=== PATIENT | male | born 1945 | race American Indian/Alaskan Native ===

== ENCOUNTER 2018-03-20 12:16 | Observation (INO) | payer MEDICARE ==
--- NOTE | 2018-03-20 12:48 | C.PDOC ---
Time Seen by Provider: 03/20/18 12:46 Chief Complaint (Nursing): Syncope Past Medical History Vital Signs: Last Vital Signs Temp 98.5 F 03/20/18 12:35 Pulse 71 03/20/18 12:35 Resp 14 03/20/18 12:35 BP 143/56 L 03/20/18 12:35 Pulse Ox - Medical History PMH: HTN - Social History Hx Alcohol Use: No Hx Substance Use: No - Immunization History Hx Tetanus Toxoid Vaccination: No Hx Influenza Vaccination: Yes Hx Pneumococcal Vaccination: No Disposition - Disposition
[2018-03-20 13:07] LABS: BASO % 0.8 % (0.0-2.0); EOS # 0.2 K/uL (0.0-0.7); EOS % 3.6 % (0.0-4.0); HEMOGLOBIN 12.8 g/dL (12.0-18.0); LYMPH % 23.5 % (20.0-40.0); MEAN CELL VOLUME 93.5 fL (80.0-94.0); MEAN CORPUSCULAR HEMOGLOBIN 32.2 pg (27.0-31.0); MEAN CORPUSCULAR HGB CONC 34.4 g/dL (33.0-37.0); MEAN PLATELET VOLUME 9.5 fL (7.2-11.7); MONO # 0.6 K/uL (0.0-0.8); MONO % 12.8 % (0.0-10.0); NEUT # 2.6 K/uL (1.8-7.0); NEUT % 59.3 % (50.0-75.0); NRBC % 0.1 % (0.0-2.0); RBC 3.97 Mil/uL (4.40-5.90); RED CELL DISTRIBUTION WIDTH 15.2 % (11.5-14.5); WHITE BLOOD COUNT 4.4 K/uL (4.8-10.8)
[2018-03-20 13:15] LABS: INR 1.1; PROTHROMBIN TIME 11.6 SECONDS (9.7-12.2)
[2018-03-20 13:33] LABS: ALB/GLOB RATIO 1.5 (1.0-2.1); ALBUMIN 4.4 g/dL (3.5-5.0); ALT/SGPT 36 U/L (21-72); AST/SGOT 42 U/L (17-59); BLOOD UREA NITROGEN 25 mg/dL (9-20); CALCIUM 9.2 mg/dl (8.6-10.4); GFR AFRICAN-AMERICAN > 60; GFR NON-AFRICAN AMERICAN > 60
[2018-03-20 13:38] LABS: B-TYPE NATRIURETIC PEPTIDE 227 pg/mL (0-900); CK-MB 1.62 ng/mL (0.0-3.38)
--- NOTE | 2018-03-20 13:41 | C.PDOC ---
History Of Present Illness HX PER PT, FAMILY 72-YEAR-OLD MALE, PRESENTS TO THE EMERGENCY DEPARTMENT S/P WITNESSED SYNCOPE @ 1300. PS WALKED TO STORE WO DIFF, WAS SELECTING FOOD CO SUDDEN ONSET DIZZY, "I COULDN'T SEE", TRIED TO WALK TO CHAIR TO SIT DOWN. PER WITNESS, PT NOTED TO APPEAR AWAKE BUT "TOTALLY DAZED", DARK LIPS. PT NOW ASYMPT, IMPROVED FROM PRIOR. DENIES PRIOR HO CAD, SYNCOPAL EVENTS. NO ASSOC PAGE, CP, ABD PAIN, PALPITATIONS. PER FAMILY, PT DRINKS 1 BOTTLE WHISKEY DAILY "BUT ONLY IN EVENING ". PT CURRENTLY SOBER PER FAMILY. PS DOES NOT TAKE METOPROLOL "ONLY OCCASIONALLY " DUE TO UPSET STOMACH BUT OTHERWISE COMPLIANT W OTHER MEDS. EXAM NAD NONTOXIC HEENT ATRAUMA NECK SUPPLE LUNGS CTA B/L NO W/R/R CV RRR ABD NEG EXT NO EDEMA ATRAUM NEURO NO FOCAL DEF AO3 PSYCH CALM COOPERATIVE, NO ACUTE INTOX/WITH SKIN WARM DRY REMAINDER NEG Time Seen by Provider: 03/20/18 12:46 Chief Complaint (Nursing): Syncope History Per: Patient, Family History/Exam Limitations: no limitations Current Symptoms Are (Timing): Better Past Medical History Reviewed: Historical Data, Nursing Documentation, Vital Signs Vital Signs: Last Vital Signs Temp 98.5 F 03/20/18 12:35 Pulse 80 03/20/18 14:07 Resp 16 03/20/18 14:07 BP 150/65 03/20/18 14:07 Pulse Ox 95 03/20/18 14:07 - Medical History PMH: HTN Family History: States: No Known Family Hx - Social History Hx Alcohol Use: No Hx Substance Use: No - Immunization History Hx Tetanus Toxoid Vaccination: No Hx Influenza Vaccination: Yes Hx Pneumococcal Vaccination: No Review Of Systems Constitutional: Negative for: Fever, Chills Cardiovascular: Negative for: Chest Pain, Palpitations Respiratory: Negative for: Cough, Shortness of Breath Gastrointestinal: Negative for: Nausea, Vomiting, Abdominal Pain Musculoskeletal: Negative for: Neck Pain, Back Pain Neurological: Positive for: Dizziness (Syncope). Negative for: Weakness, Numbness, Headache Physical Exam - Physical Exam Appears: Non-toxic, No Acute Distress Skin: Warm, Dry, No Rash Head: Atraumatic, Normacephalic Nose: Normal Oral Mucosa: Moist Lips: Normal Appearing Neck: Normal ROM Chest: Symmetrical Cardiovascular: Rhythm Regular, No Murmur Respiratory: Normal Breath Sounds, No Accessory Muscle Use, No Rales, No Rhonchi , No Wheezing Gastrointestinal/Abdominal: Soft, No Tenderness Back: No CVA Tenderness Extremity: No Pedal Edema, No Deformity, No Swelling Neurological/Psych: Oriented x3, Normal Speech (NO FOCAL DEF), Other (CALM COOPERATIVE, NO ACUTE INTOX/WITH) ED Course And Treatment - Laboratory Results Result Diagrams: 03/20/18 12:59 03/20/18 12:59 Progress - Re-Evaluation Re-evaluation Note: 03/20/18 13:41 PT AND FAMILY ADVISED PT WILL REQUIRE ADMISSION FOR FURTHER EVALUATION AND WORKUP. 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 WILL ADMIT - Data Reviewed Data Reviewed: Lab, Diagnostic imaging, EKG, Old records - Critical Care Citical Care: Excluding Proc Time Critical Care Time: 90 minutes - Continuity of Care Discussed patient case with:: Patient, Family-HIPPA compliant Disposition Counseled Patient/Family Regarding: Studies Performed, Diagnosis - Disposition Disposition: HOSPITALIZED Disposition Time: 15:24 Condition: STABLE - POA Present On Arrival: None - Clinical Impression Clinical Impression: Syncope, Alcohol dependence - Scribe Statement The provider has reviewed the documentation as recorded by the Scribe (Julianne Kelsey) All medical record entries made by the Scribe were at my direction and personally dictated by me. I have reviewed the chart and agree that the record accurately reflects my personal performance of the history, physical exam, medical decision making, and the department course for this patient. I have also personally directed, reviewed, and agree with the discharge instructions and disposition. Decision To Admit - Pt Status Changed To: Hospital Disposition Of: Observation - . Bed Request Type: Telemetry Admitting Physician: Sola Cat Patient Diagnosis: Syncope, Alcohol dependence
--- NOTE | 2018-03-20 13:48 | RAD ---
PROCEDURE: CHEST RADIOGRAPH, 1 VIEW HISTORY: syncope COMPARISON: None available. FINDINGS: LUNGS: Clear. PLEURA: No pneumothorax or pleural fluid seen. CARDIOVASCULAR: Normal. OSSEOUS STRUCTURES: Degenerative changes. VISUALIZED UPPER ABDOMEN: Normal. OTHER FINDINGS: None. IMPRESSION: No active disease.
[2018-03-20 14:33] LABS: URINE BILIRUBIN NEGATIVE (NEGATIVE); URINE BLOOD NEGATIVE (NEGATIVE); URINE CLARITY Hazy (Clear); URINE COLOR Yellow (YELLOW); URINE GLUCOSE (UA) NORMAL (Normal); URINE HYALINE CAST 0-2 /lpf (0-2); URINE LEUKOCYTE ESTERASE NEG Leu/uL (Negative); URINE PROTEIN NEGATIVE (NEGATIVE)
--- NOTE | 2018-03-20 15:09 | CT ---
PROCEDURE: CT HEAD WITHOUT CONTRAST. HISTORY: syncope COMPARISON: None available. TECHNIQUE: Axial computed tomography images were obtained through the head/brain without intravenous contrast. Radiation dose: Total exam DLP = 864.1 mGy-cm. This CT exam was performed using one or more of the following dose reduction techniques: Automated exposure control, adjustment of the mA and/or kV according to patient size, and/or use of iterative reconstruction technique. FINDINGS: HEMORRHAGE: No intracranial hemorrhage. BRAIN: No mass effect or edema. Mild atrophy. Mild chronic microvascular ischemic changes. VENTRICLES: Unremarkable. No hydrocephalus. CALVARIUM: Unremarkable. PARANASAL SINUSES: Trace pansinus mucosal thickening. MASTOID AIR CELLS: Unremarkable as visualized. No inflammatory changes. OTHER FINDINGS: None. IMPRESSION: No acute intracranial pathology.
--- NOTE | 2018-03-20 22:23 | CP.PCM.HP ---
History of Present Illness - History of Present Illness History of Present Illness: COMPREHENSIVE HISTORY & PHYSICAL EXAM Patient is admitted with a history of syncope HPI While going to the store today patient suddenly felt lightheaded and blurry vision and became extremely weak that he had to sit down patient is not sure that he had completely passed out. Patient was also very diaphoretic and sweating there was no chest pain or any seizure activity. Patient was brought to the emergency room routine neuro and cardiac workup was negative. Patient is an alcoholic drinks whiskey every day but claims he drinks only in the evening and as per the family patient does not appear to be done. Alcohol level in the emergency room was negative. Currently patient does not complain of any symptoms PAST HIST. Patient is a history of cardiomyopathy there is no definite history of coronary artery disease. Type II diabetes, hypertension on 3 drugs. PERSONAL HIST: Smoking. N Alcohol. Moderate to heavy for many years Allergy N Travel_- . FAMILY HIST : ROS : Constitutional: Negative for weight change, chills, night sweats, fatigue and usage of assist device. Eyes: Negative for redness, swelling, itching, discharge, vision changes, blurry vision, double vision, glaucoma, cataracts, Ears: Negative for hearing loss, ringing, , tinnitus, vertigo Nose: Negative for rhinorrhea, stuffiness, sniffing, itching, postnasal drip, discoloration, nasal congestion and epistaxis. Throat: Negative for throat clearing, sore throat, hoarseness, difficulty swallowing and difficulty speaking. Respiratory: Negative for cough, chest tightness, sputum or phlegm, chronic cough, hemoptysis, wheezing, snoring at night, pleuritic chest pain and daytime somnolence. Cardiovascular: Negative for chest pain, palpitations, orthopnea, PND, Edema of legs, leg cramps, angina, claudication, , irregular heartbeat, Neurology: Negative for irritability, muscle weakness, numbness and tingling, seizures, tremors, migraines, slurred speech, memory loss, mood changes, recurrent headaches Gastrointestinal: Negative for difficulty swallowing, diarrhea, constipation, black stools, rectal bleeding, nausea, flatulence, reflux, poor appetite, changes in bowel habits, abdominal pain Genitourinary: Negative for frequent urination, hematuria, discharge, incontinence, urinary retention, frequent UTI, Psychiatric: Negative for depression, anxiety/panic, suicidal tendencies, Musculoskeletal: Negative for swollen joints, back pain, , neck pain, morning stiffness of joints, . Skin: Negative for rash, ulcers, itching, dry skin and pigmented lesions. P/E: Constitutional: Appears stated age and in no apparent distress. Head: Normocephalic. Ears: External ear canals patent without inflammation. Tympanic membranes intact with normal light reflex and landmark. Eyes: Pupils are central, bilaterally equal, symmetrical and reacts to light with normal movements and no icterus or pallor. Nose: External nares are patent. Mucosa is pink Mouth-Throat: Good general appearance and condition. No post-pharyngeal/oropharyngeal erythema and tonsillar hypertrophy. Good dental hygiene. Neck-Lymphatic: Neck is supple with normal ROM, no thyromegaly, lymph nodes or masses. JVD is normal with no carotid bruit. Lungs: Clear to percussion and auscultation with bilateral normal air entry. Cardiovascular: S1 and S2 are normal with no murmurs, gallops and rub. GI Exam: No hepatomegaly. Abdomen is soft and non-tender. No Organomegaly , masses or hernias are evident and bowel sounds are normal and active. Neurology: Higher function and all cranial nerves intact, with no gross motor or sensory deficit. Superficial and deep reflexes are normal with downwards planters. No cerebellar deficit with normal gait. Musculoskeletal: No tender spots with normal curvature of the spine with no swelling or restricted ROM of the small and large joints. Extremities: Homans sign absent. Intact pulses with no pitting edema, calf tenderness or skin color changes. Skin: No rash, eruptions or abnormal skin pigmentation LAB/RADIOLOGY: ASSESMENT : Syncopal episode, etiology to be determined. Cardiomyopathy, unknown etiology. Type II diabetes. Hypertension. Plan: Patient will need a complete cardiac and neuro workup and continue his present medication observe on telemetry and get cardiac enzymes and a repeat EKG Present on Admission - Present on Admission Any Indicators Present on Admission: No Past Patient History - Infectious Disease Hx of Infectious Diseases: None - Past Social History Smoking Status: Never Smoked - CARDIAC Hx Hypertension: Yes - ENDOCRINE/METABOLIC Hx Diabetes Mellitus Type 2: Yes - PSYCHIATRIC Hx Substance Use: No - SURGICAL HISTORY Other/Comment: Umbilical hernia repair. - ANESTHESIA Hx Anesthesia: Yes Hx Anesthesia Reactions: No Hx Malignant Hyperthermia: No Meds Allergies/Adverse Reactions: Allergies Allergy/AdvReac Type Severity Reaction Status Date / Time No Known Allergies Allergy Unverified 03/20/18 12:25 Results - Vital Signs Recent Vital Signs: Last Vital Signs Temp 98.3 F 03/20/18 17:00 Pulse 74 03/20/18 17:41 Resp 18 03/20/18 17:00 BP 177/86 H 03/20/18 17:00 Pulse Ox 98 03/20/18 17:00 - Labs Result Diagrams: 03/20/18 12:59 03/20/18 12:59 Labs: Laboratory Results - last 24 hr 03/20/18 03/20/18 03/20/18 12:24 12:59 12:59 WBC 4.4 L RBC 3.97 L Hgb 12.8 Hct 37.1 MCV 93.5 MCH 32.2 H MCHC 34.4 RDW 15.2 H Plt Count 209 MPV 9.5 Neut % (Auto) 59.3 Lymph % (Auto) 23.5 [place] % (Auto) 12.8 H Eos % (Auto) 3.6 Baso % (Auto) 0.8 Neut # (Auto) 2.6 Lymph # (Auto) 1.0 [place] # (Auto) 0.6 Eos # (Auto) 0.2 Baso # (Auto) 0.0 PT 11.6 INR 1.1 APTT 28 D-Dimer, Quantitative 237 Sodium Potassium Chloride Carbon Dioxide Anion Gap BUN Creatinine Est GFR ( Amer) Est GFR (Non-Af Amer) POC Glucose (mg/dL) 295 H Random Glucose Calcium Total Bilirubin AST ALT Alkaline Phosphatase Total Creatine Kinase CK-MB (Mass) Troponin I NT-Pro-B Natriuret Pep Total Protein Albumin Globulin Albumin/Globulin Ratio Urine Color Urine Clarity Urine pH Ur Specific [place] Urine Protein Urine Glucose (UA) Urine Ketones Urine Blood Urine Nitrate Urine Bilirubin Urine Urobilinogen Ur Leukocyte Esterase Urine WBC (Auto) Urine RBC (Auto) Hyaline Casts Alcohol, Quantitative 03/20/18 03/20/18 03/20/18 12:59 14:14 17:22 WBC RBC Hgb Hct MCV MCH MCHC RDW Plt Count MPV Neut % (Auto) Lymph % (Auto) [place] % (Auto) Eos % (Auto) Baso % (Auto) Neut # (Auto) Lymph # (Auto) [place] # (Auto) Eos # (Auto) Baso # (Auto) PT INR APTT D-Dimer, Quantitative Sodium 140 Potassium 4.4 Chloride 97 L Carbon Dioxide 32 H Anion Gap 16 BUN 25 H Creatinine 1.1 Est GFR ( Amer) > 60 Est GFR (Non-Af Amer) > 60 POC Glucose (mg/dL) 233 H Random Glucose 261 H Calcium 9.2 Total Bilirubin 0.9 AST 42 ALT 36 Alkaline Phosphatase 103 Total Creatine Kinase 85 CK-MB (Mass) 1.62 Troponin I < 0.0120 NT-Pro-B Natriuret Pep 227 Total Protein 7.4 Albumin 4.4 Globulin 2.9 Albumin/Globulin Ratio 1.5 Urine Color Yellow Urine Clarity Hazy Urine pH 6.0 Ur Specific [place] 1.016 Urine Protein Negative Urine Glucose (UA) Normal Urine Ketones Trace Urine Blood Negative Urine Nitrate Negative Urine Bilirubin Negative Urine Urobilinogen 2.0 Ur Leukocyte Esterase Neg Urine WBC (Auto) 1 Urine RBC (Auto) < 1 Hyaline Casts 0-2 Alcohol, Quantitative < 10 03/20/18 21:05 WBC RBC Hgb Hct MCV MCH MCHC RDW Plt Count MPV Neut % (Auto) Lymph % (Auto) [place] % (Auto) Eos % (Auto) Baso % (Auto) Neut # (Auto) Lymph # (Auto) [place] # (Auto) Eos # (Auto) Baso # (Auto) PT INR APTT D-Dimer, Quantitative Sodium Potassium Chloride Carbon Dioxide Anion Gap BUN Creatinine Est GFR ( Amer) Est GFR (Non-Af Amer) POC Glucose (mg/dL) 229 H Random Glucose Calcium Total Bilirubin AST ALT Alkaline Phosphatase Total Creatine Kinase CK-MB (Mass) Troponin I NT-Pro-B Natriuret Pep Total Protein Albumin Globulin Albumin/Globulin Ratio Urine Color Urine Clarity Urine pH Ur Specific [place] Urine Protein Urine Glucose (UA) Urine Ketones Urine Blood Urine Nitrate Urine Bilirubin Urine Urobilinogen Ur Leukocyte Esterase Urine WBC (Auto) Urine RBC (Auto) Hyaline Casts Alcohol, Quantitative
[2018-03-20 23:13] LABS: CK-MB 2.2 ng/mL (0.0-3.38); TROPONIN I 0.017 ng/mL (0.00-0.120)
[2018-03-21 08:40] LABS: CK-MB 2.22 ng/mL (0.0-3.38); TROPONIN I 0.02 ng/mL (0.00-0.120)
[2018-03-21] MEDS: (Novolin R) Insulin Human Regular 100 units/ml vial SC SCH ×4 (09:46→22:05)
--- NOTE | 2018-03-21 11:06 | CARD ---
APPROVED REPORT EKG Measurement Heart [id number] <Conclusion> Normal sinus rhythm ST & T wave abnormality, consider lateral ischemia Abnormal ECG
--- NOTE | 2018-03-21 13:31 | MRI ---
PROCEDURE: MRI BRAIN WITHOUT CONTRAST HISTORY: CVA COMPARISON: Noncontrast head CT from 03/20/2018 TECHNIQUE: Multiplanar, multisequence MR images of the brain were obtained without intravenous contrast enhancement. FINDINGS: HEMORRHAGE: None DWI: No evidence of an acute or early subacute infarction. BRAIN PARENCHYMA: There are minimal chronic microangiopathic changes. There is no mass, mass effect or abnormal extra-axial fluid collection. There is no territorial infarction. There is a partially empty sella, otherwise the midline sagittal structures are normal. VENTRICLES: There is mild age-related global parenchymal volume loss and proportionate enlargement of the ventricles and cortical sulci. CRANIUM: There is normal bone marrow signal pattern. ORBITS: Grossly unremarkable. PARANASAL SINUSES/MASTOIDS: There is mild mucosal thickening in the paranasal sinuses. VASCULAR SYSTEM: There are normal signal voids in the larger intracranial arteries. OTHER FINDINGS: None. IMPRESSION: No acute intracranial abnormality. Specifically, no evidence for acute infarction. Moderate age-related global parenchymal volume loss.
--- NOTE | 2018-03-21 13:55 | CP.PCM.PN ---
Subjective - Date & Time of Evaluation Date of Evaluation: 03/21/18 Time of Evaluation: 13:54 - Subjective Subjective: CHIEF COMPLAINTS TODAY : Patient has no further chest pain or shortness of breath or any dizzy spell. Vital signs are stable ROS. HEENT : N. Resp : No cough, wheezing ,pleuritic CP ,or hemoptysis Cardio : No anginal CP, PND, orthopnea, palpitation GI : No abd.pain, n/v ,diarrhea or GI bleeding . [employer] : No headache, vertigo, focal deficit. Musculoskel : No joint swelling , Derm : No rash Psych : Normal affect. Ext : No swelling ,calf pain PE. Pt. is alert awake in no distress. V.S As noted in the chart Head ,ear nose,throat and eyes : Normal. Neck : Supple with normal carotids. Lungs: Clear air entry. Heart : S1 & S2 normal with S4. No murmur. Abd : Soft non tender with normal bowel sounds. Neuro : Moves all ext. with no localized deficit. Ext : No edema with intact pulses.Non tender calves Derm : No rashes or decubitus ulcer. LABS/RADIOLOGY: ASSESSMENT/PLAN : Neuro cardiac workup in progress. Objective - Vital Signs/Intake and Output Vital Signs (last 24 hours): Temp Pulse Resp BP Pulse Ox 98.2 F 75 18 170/81 H 98 03/21/18 09:39 03/21/18 09:39 03/21/18 09:39 03/21/18 09:44 03/21/18 09:39 - Medications Medications: Current Medications Carvedilol (Coreg) 12.5 mg PO BID [facility] Last Admin: 03/21/18 09:44 Dose: 12.5 mg Chlordiazepoxide (Librium) 10 mg PO Q8 PRN PRN Reason: ALCOHOL WITHDRAWAL/TREMORS Glipizide (Glucotrol) 10 mg PO BID [facility] Last Admin: 03/21/18 09:44 Dose: 10 mg Insulin Human Regular (Novolin R) 0 unit [facility] PRN Reason: Protocol Last Admin: 03/21/18 13:36 Dose: Not Given Metoprolol Tartrate (Lopressor) 100 mg PO BID [facility] Last Admin: 03/21/18 09:45 Dose: 100 mg Montelukast Sodium (Singulair) 10 mg PO [facility] Pneumococcal Polyvalent Vaccine (Pneumovax 23 Vaccine) 0.5 ml IM .ONCE ONE Stop: 03/22/18 12:01 - Labs Labs: 03/20/18 12:59 03/20/18 12:59 PT 11.6 SECONDS (9.7-12.2) 03/20/18 12:59 INR 1.1 03/20/18 12:59 APTT 28 SECONDS (21-34) 03/20/18 12:59
[2018-03-21 15:52] LABS: CK-MB 1.98 ng/mL (0.0-3.38); TROPONIN I 0.014 ng/mL (0.00-0.120)
--- NOTE | 2018-03-21 16:32 | VASCLAB ---
PROCEDURE: HISTORY: syncope COMPARISON: None available. TECHNIQUE: Grayscale and duplex Doppler evaluation of the cervical carotid and vertebral arteries were performed. The common carotid, carotid bifurcations and cervical Internal Carotid Artery (ICA) and proximal External Carotid Artery (ECA) were evaluated. The vertebral arteries were evaluated for gross patency and flow direction. Report prepared by Karen Jerez RDCS, S FINDINGS: RIGHT CAROTID ARTERIES: 1. Common Carotid Artery: No significant focal plaque formation of the right common carotid artery. Maximum Peak Systolic velocity: 86 cm/sec: End-diastolic velocity 17 cm/sec. 2. Carotid Bifurcation: plaque formation. Maximum Peak Systolic velocity: 46 cm/sec: End-diastolic velocity 10 cm/sec. 3. Internal Carotid Artery: Plaque description: Homogeneous 3.1. Proximal Segment: Peak systolic velocity 144 cm/sec: End-diastolic velocity 37 cm/sec - % stenosis 16-49% 3.2. Middle Segment: Peak systolic velocity 89 cm/sec: End-diastolic velocity 28 cm/sec - % stenosis 3.3. Distal Segment: Peak systolic velocity 82 cm/sec: End-diastolic velocity 21 cm/sec - % stenosis 4. External Carotid Artery: No significant focal plaque formation. Peak systolic velocity 86 cm/sec 5. ICA/CCA Ratio: 2.7 LEFT CAROTID ARTERIES: 1. Common Carotid Artery: No significant focal plaque formation of the left common carotid artery. Maximum Peak Systolic velocity: 52 cm/sec: End-diastolic velocity 13 cm/sec. 2. Carotid Bifurcation: plaque formation. Maximum Peak Systolic velocity: 36 cm/sec: End-diastolic velocity 12 cm/sec. 3. Internal Carotid Artery: Plaque description: 3.1. Proximal Segment: Peak systolic velocity 47 cm/sec: End-diastolic velocity 11 cm/sec - % stenosis 3.2. Middle Segment: Peak systolic velocity 69 cm/sec: End-diastolic velocity 25 cm/sec - % stenosis 3.3. Distal Segment: Peak systolic velocity 103 cm/sec: End-diastolic velocity 39 cm/sec - % stenosis 4. External Carotid Artery: No significant focal plaque formation. Peak systolic velocity 81 cm/sec 5. ICA/CCA Ratio: 2.2 VERTEBRAL ARTERIES: 1. Right Vertebral Artery: The right vertebral artery flow direction is antegrade. 2. Left Vertebral Artery: The left vertebral artery flow direction is antegrade. OTHER FINDINGS: 1. Right Brachial Blood pressure: 158 mmHg. 2. Left Brachial Blood pressure: 167 mmHg. IMPRESSION: RIGHT: Duplex scan does not suggest hemodynamically significant stenosis of the right extracranial carotid arteries. There is a 16-49% homogeneous plaque noted at the right proximal internal carotid artery. LEFT: Duplex scan does not suggest hemodynamically significant stenosis of the left extracranial carotid arteries.
[2018-03-21 16:50] VITALS: RESP 20
--- NOTE | 2018-03-21 22:51 | CARD ---
APPROVED REPORT EKG Measurement Heart [id number] <Conclusion> Normal sinus rhythm Left ventricular hypertrophy with repolarization abnormality Abnormal ECG
[2018-03-22] MEDS: (Novolin R) Insulin Human Regular 100 units/ml vial SC SCH ×4 (08:30→21:29)
[2018-03-22] MEDS ORDERED: Pneumococcal 23-Valent Vaccine IM ONE (12:00)
--- NOTE | 2018-03-22 14:21 | CP.PCM.DIS ---
Provider - Provider Date of Admission: 03/20/18 15:25 Attending physician: Sola Cat MD Time Spent in preparation of Discharge (in minutes): 35 Hospital Course - Lab Results Lab Results: Most Recent Lab Values WBC 4.4 K/uL (4.8-10.8) L 03/20/18 12:59 RBC 3.97 Mil/uL (4.40-5.90) L 03/20/18 12:59 Hgb 12.8 g/dL (12.0-18.0) 03/20/18 12:59 Hct 37.1 % (35.0-51.0) 03/20/18 12:59 MCV 93.5 fL (80.0-94.0) 03/20/18 12:59 MCH 32.2 pg (27.0-31.0) H 03/20/18 12:59 MCHC 34.4 g/dL (33.0-37.0) 03/20/18 12:59 RDW 15.2 % (11.5-14.5) H 03/20/18 12:59 Plt Count 209 K/uL (130-400) 03/20/18 12:59 MPV 9.5 fL (7.2-11.7) 03/20/18 12:59 Neut % (Auto) 59.3 % (50.0-75.0) 03/20/18 12:59 Lymph % (Auto) 23.5 % (20.0-40.0) 03/20/18 12:59 [place] % (Auto) 12.8 % (0.0-10.0) H 03/20/18 12:59 Eos % (Auto) 3.6 % (0.0-4.0) 03/20/18 12:59 Baso % (Auto) 0.8 % (0.0-2.0) 03/20/18 12:59 Neut # (Auto) 2.6 K/uL (1.8-7.0) 03/20/18 12:59 Lymph # (Auto) 1.0 K/uL (1.0-4.3) 03/20/18 12:59 [place] # (Auto) 0.6 K/uL (0.0-0.8) 03/20/18 12:59 Eos # (Auto) 0.2 K/uL (0.0-0.7) 03/20/18 12:59 Baso # (Auto) 0.0 K/uL (0.0-0.2) 03/20/18 12:59 PT 11.6 SECONDS (9.7-12.2) 03/20/18 12:59 INR 1.1 03/20/18 12:59 APTT 28 SECONDS (21-34) 03/20/18 12:59 D-Dimer, Quantitative 237 ng/mlDDU (0-243) 03/20/18 12:59 Sodium 140 mmol/L (132-148) 03/20/18 12:59 Potassium 4.4 mmol/L (3.6-5.2) 03/20/18 12:59 Chloride 97 mmol/L (98-107) L 03/20/18 12:59 Carbon Dioxide 32 mmol/L (22-30) H 03/20/18 12:59 Anion Gap 16 (10-20) 03/20/18 12:59 BUN 25 mg/dL (9-20) H 03/20/18 12:59 Creatinine 1.1 mg/dL (0.8-1.5) 03/20/18 12:59 Est GFR ( Amer) > 60 03/20/18 12:59 Est GFR (Non-Af Amer) > 60 03/20/18 12:59 POC Glucose (mg/dL) 200 mg/dL (65-110) H 03/22/18 06:54 Random Glucose 261 mg/dL (75-110) H 03/20/18 12:59 Calcium 9.2 mg/dl (8.6-10.4) 03/20/18 12:59 Total Bilirubin 0.9 mg/dL (0.2-1.3) 03/20/18 12:59 AST 42 U/L (17-59) 03/20/18 12:59 ALT 36 U/L (21-72) 03/20/18 12:59 Alkaline Phosphatase 103 U/L (38-126) 03/20/18 12:59 Total Creatine Kinase 139 U/L (55-170) 03/21/18 14:53 CK-MB (Mass) 1.98 ng/mL (0.0-3.38) 03/21/18 14:53 Troponin I 0.0140 ng/mL (0.00-0.120) 03/21/18 14:53 NT-Pro-B Natriuret Pep 227 pg/mL (0-900) 03/20/18 12:59 Total Protein 7.4 g/dL (6.3-8.3) 03/20/18 12:59 Albumin 4.4 g/dL (3.5-5.0) 03/20/18 12:59 Globulin 2.9 gm/dL (2.2-3.9) 03/20/18 12:59 Albumin/Globulin Ratio 1.5 (1.0-2.1) 03/20/18 12:59 Urine Color Yellow (YELLOW) 03/20/18 14:14 Urine Clarity Hazy (Clear) 03/20/18 14:14 Urine pH 6.0 (5.0-8.0) 03/20/18 14:14 Ur Specific [place] 1.016 (1.003-1.030) 03/20/18 14:14 Urine Protein Negative mg/dL (NEGATIVE) 03/20/18 14:14 Urine Glucose (UA) Normal mg/dL (Normal) 03/20/18 14:14 Urine Ketones Trace mg/dL (NEGATIVE) 03/20/18 14:14 Urine Blood Negative (NEGATIVE) 03/20/18 14:14 Urine Nitrate Negative (NEGATIVE) 03/20/18 14:14 Urine Bilirubin Negative (NEGATIVE) 03/20/18 14:14 Urine Urobilinogen 2.0 mg/dL (0.2-1.0) 03/20/18 14:14 Ur Leukocyte Esterase Neg [place]/uL (Negative) 03/20/18 14:14 Urine WBC (Auto) 1 /hpf (0-5) 03/20/18 14:14 Urine RBC (Auto) < 1 /hpf (0-3) 03/20/18 14:14 Hyaline Casts 0-2 /lpf (0-2) 03/20/18 14:14 Alcohol, Quantitative < 10 mg/dl (0-10) 03/20/18 12:59 - Hospital Course Hospital Course: While going to the store today patient suddenly felt lightheaded and blurry vision and became extremely weak that he had to sit down patient is not sure that he had completely passed out. Patient was also very diaphoretic and sweating there was no chest pain or any seizure activity. Patient was brought to the emergency room routine neuro and cardiac workup was negative. Patient is an alcoholic drinks whiskey every day but claims he drinks only in the evening and as per the family patient does not appear to be done. Alcohol level in the emergency room was negative. Currently patient does not complain of any symptoms patient was observed on the telemetry bed. There was no any cardiac arrhythmias dd in 48 hours. Echocardiogram showed normal left medical ejection fraction with no wall motion abnormalities. MRI of the brain was negative for any acute infarct or tumor Carotid Doppler showed less than 49% and homogeneous plaque at the right internal carotid artery origin, the left internal carotid artery was normal EEG is pending Currently patient is stable can be discharged on aspirin and Plavix for the carotid artery disease and will need further evaluation as outpatient Patient will need outpatient stress test patient was given appointment to follow -up with my office. 03/23/18. PATIENT STAYED AN EXTRA DAY IN THE HOSPITAL HE HAD NO TRANSPORTATION TO TAKING HOME. pATIENT CURRENTLY STABLE DISCUSS ALL THE FINDINGS ABOVE AND WILL FOLLOW THE PATIENT OUTPATIENT Discharge Plan - Follow Up Plan Condition: STABLE Disposition: HOME/ ROUTINE
[2018-03-23] MEDS: (Novolin R) Insulin Human Regular 100 units/ml vial SC SCH ×3 (08:57→17:51)
[2018-03-23 16:35] VITALS: PULSE 61
[2018-03-23 17:16] VITALS: BP 175/81; TEMP 97.4; O2SAT 97
--- NOTE | 2018-03-24 11:12 | CARD ---
APPROVED REPORT EXAM: Two-dimensional and M-mode echocardiogram with Doppler and color Doppler. Other Information Quality : GoodRhythm : INDICATION Syncope alcohol dependence 2D DIMENSIONS IVSd1.6 (0.7-1.1cm)LVDd4.0 (3.9-5.9cm) PWd0.8 (0.7-1.1cm)LVDs2.2 (2.5-4.0cm) FS (%) 45.0 %LVEF (%)76.9 (>50%) M-Mode DIMENSIONS Left Atrium (MM)4.19 (2.5-4.0cm)IVSd1.32 (0.7-1.1cm) Aortic Root3.85 (2.2-3.7cm)LVDd4.14 (4.0-5.6cm) Aortic Cusp Exc.2.00 (1.5-2.0cm)PWd0.75 (0.7-1.1cm) FS (%) 51 %LVDs2.05 (2.0-3.8cm) LVEF (%)82 (>50%) Mitral Valve MV E Itjaulaf32.6cm/sMV A Thtawywo391.2cm/sE/A ratio0.6 TDI E/Lateral E'0.0E/Medial E'0.0 LEFT VENTRICLE The left ventricle is normal size. There is normal left ventricular wall thickness. Proximal septal thickening is noted. The left ventricular function is normal. The left ventricular ejection fraction is within the normal range. No regional wall motion abnormalities noted. Transmitral Doppler flow pattern is Grade I-abnormal relaxation pattern.LV filling pressure is increased No left ventricle thrombus noted on this study. There is no ventricular septal defect visualized. There is no left ventricular aneurysm. There is no mass noted in the left ventricle. RIGHT VENTRICLE The right ventricle is normal size. There is normal right ventricular wall thickness. The right ventricular systolic function is normal. ATRIA The left atrium size and volume is moderately dilated. The right atrium size is normal. The interatrial septum is intact with no evidence for an atrial septal defect. AORTIC VALVE The aortic valve is normal in structure and function. No aortic regurgitation is present. There is no aortic valvular stenosis. There is no aortic valvular vegetation. MITRAL VALVE The mitral valve is normal in structure and function. There is no evidence of mitral valve prolapse. There is no mitral valve stenosis. Mitral regurgitation is mild. TRICUSPID VALVE The tricuspid valve is normal in structure and function. There is no tricuspid valve regurgitation noted. There is no tricuspid valve prolapse or vegetation. There is no tricuspid valve stenosis. PULMONIC VALVE The pulmonary valve is normal in structure and function. There is no pulmonic valvular regurgitation. There is no pulmonic valvular stenosis. GREAT VESSELS The aortic root is normal in size. The ascending aorta is normal in size. The pulmonary artery is normal. The IVC is normal in size and collapses >50% with inspiration. PERICARDIAL EFFUSION The pericardium appears normal. There is no pleural effusion. <Conclusion> There is normal left ventricular wall thickness. Proximal septal thickening is noted. The left ventricular function is normal. The left ventricular ejection fraction is within the normal range. Transmitral Doppler flow pattern is Grade I-abnormal relaxation pattern.LV filling pressure is increased The left atrium size and volume is moderately dilated. Mitral regurgitation is mild.
--- NOTE | 2018-03-25 11:53 | EEG ---
DATE: 03/21/2018 Technical Information: Electrodes were placed according to the 10-20 [employer] electrode system by interventional radiology technologist. Total of 23 electrodes (21 EEG and 2 EKG) were placed. EEG activity was digitally recorded referentially to P1/P2 or A1/A2 electrodes. Continuous monitoring with EEG was performed using digital analysis for spike detection. The [employer] spike and seizure detection algorithms were used for digital EEG analysis throughout the monitoring period to screen the EEG in real-time and skip the data file with pointers to electrographic seizures and interictal discharges. EEG was screened for electrographic seizures and interictal discharges by a technologist. Physician, epileptologist reviewed detections as well as extensive random samples and whole EEG study in detail. Digital EEG Analysis: Was carried out including FFT (Fast Fourier Transform), R2D2 (Rhythmicity Run Detection and Display), Relative Asymmetry Spectrogram, and voltage plot by the [employer] Software. The qualitative EEG analysis and the voltage plot mapping were used for detection of foci of paroxysmal and abnormal electrical cortical activity. General Description: Background Rhythm: There is a well-formed, 8-10 Hz posterior dominant rhythm that is reactive, symmetric, and attenuates with eye opening. There was a normal amount of frontal beta noted bilaterally. There is no sleep recorded. Activation Procedures: Photic stimulation: There is no driving noted. Hyperventilation: There is slowing noted that is self-remitted. Abnormal Activity: There are no focal epileptiform discharges noted. No clinical or subclinical seizures noted. Impression: This is a normal awake and drowsy EEG. Clinical correlation is required. Alex Palacio MD
== END 2018-03-23 18:34 | disposition home or self-care (01) ==
LOC: C.ER 12:16 → C.9E 15:25 → C.6T 16:26
PROVIDERS: ADMIT Internal Medicine Cardiovascular Disease; ATTEND Internal Medicine Cardiovascular Disease
DX: I65.21 Occlusion and stenosis of right carotid artery (principal); F10.20 Alcohol dependence, uncomplicated; E11.9 Type 2 diabetes mellitus without complications; I10 Essential (primary) hypertension; I42.9 Cardiomyopathy, unspecified; Z79.4 Long term (current) use of insulin
CPT/HCPCS: 36415; 70450; 70551; 71045; 80053; 80320; 81001; 82550; 82553; 82948; 83880; 84484; 85025; 85378; 85610; 85730; 90471; 90732; 93005; 93306; 93880; 95812; 99285; G0378